=== PATIENT | female | born 1970 | race Caucasian/White ===

== ENCOUNTER 2020-06-21 12:07 | Emergency (ER) | payer BC ==
[~2020-06-21] VITALS: Ht 157.5 cm; Wt 76.4 kg
--- NOTE | 2020-06-21 12:48 | NUR ---
PT REQUESTING TO HAVE BLOOD TESTED FOR HEAVY METALS. PROVIDER NOTIFIED.
[2020-06-21 13:11] LABS: BASOPHILS % (AUTO) 1 % (0-1); EOSINOPHILS % (AUTO) 2 % (1-7); LYMPHOCYTES % (AUTO) 31 % (22-44); MEAN CORPUSCULAR HEMOGLOBIN 29.2 pg (27.0-34.8); MEAN CORPUSCULAR HGB CONC 33.5 g/dL (32.4-35.8); MEAN PLATELET VOLUME 8.4 fL (7.4-10.4); MONOCYTES % (AUTO) 7 % (2-9); NEUTROPHILS % (AUTO) 60 % (42-75); PLATELET COUNT 247 x10^3/uL (130-400); RED BLOOD COUNT 4.79 x10^6/uL (3.82-5.3); RED CELL DISTRIBUTION WIDTH 13.7 % (9.6-15.2)
[2020-06-21 13:15] LABS: MD NO
[2020-06-21 13:20] LABS: ALBUMIN 3.8 g/dL (3.4-5.0); ANION GAP 5 mmol/L (5-15); CALCIUM 8.9 mg/dL (8.5-10.1); CHLORIDE 109 mmol/L (98-107); CREATININE 0.96 mg/dL (0.55-1.02)
--- NOTE | 2020-06-21 15:46 | NUR ---
PT RESTING IN BED NAD
[2020-06-21 15:56] LABS: HCT (SEDRATE) 41.8 % (34.6-47.8)
[2020-06-21 17:01] VITALS: BP 131/84
--- NOTE | 2020-06-21 17:03 | NUR ---
pt d'cd with instructions
== END 2020-06-21 17:05 | disposition home or self-care (01) ==
LOC: ED 13:04
DX: G44.52 New daily persistent headache (NDPH) (principal); R42 Dizziness and giddiness; E78.00 Pure hypercholesterolemia, unspecified
CPT/HCPCS: 36415; 70450; 80048; 82040; 82175; 83655; 83825; 85025; 85651; 99284